=== PATIENT | male | born 1990 | race African-American/Black ===

== ENCOUNTER 2022-01-28 01:30 | Emergency (ER) | payer BC ==
[2022-01-28] MEDS ORDERED: LIDOCAINE VISCOUS 2% SOLN 15 ML UDC ONE (02:52)
[2022-01-28] MEDS ORDERED: MAGNES/ALUMIN/SIMET 30ML UCUP ONE (02:52)
--- NOTE | 2022-01-28 03:16 | EDPHYS ---
Physician Documentation [facility] Name: Jason Hernandez Age: 31 yrs Sex: Male : 1990 Arrival Date: 01/28/2022 Time: 01:34 Bed 19 Private MD: ED Physician Shana Jimenez HPI: 01/28 05:46 This 31 yrs old Black Male presents to ER via Ambulatory with complaints of Neck sd2 Problem. 05:46 31 yo M presents with CC of foreign body sensation to throat. Reports he swallowed a sd2 fingernail he was chewing on about a week ago and then noticed it felt like it cut or scraped his throat when he swallowed it. Reports continued sensations of irritations to this area when swallowing and that he noticed when he laid down tonight, he had associated chest tightness and difficulty breathing along with associated anxiety after reading about his symptoms at [facility]. Denies fevers, CP, SOB. . Historical: - Allergies: 02:04 NKDA; bb - Home Meds: 02:04 None [Active]; bb - PMHx: 02:04 None; bb - PSHx: 02:04 None; bb - Immunization history:: Client reports receiving the 2nd dose of the Covid vaccine, Pfizer. - Social history:: Smoking status: Patient denies any tobacco usage or history of. ROS: 05:46 Constitutional: Negative for fever, chills, and weight loss, Eyes: Negative for injury, sd2 pain, redness, and discharge, ENT: Negative for injury and discharge, Positive for throat pain Neck: Negative for injury, pain, and swelling, Cardiovascular: Negative for chest pain, palpitations, and edema, Respiratory: Negative for shortness of breath, cough, wheezing. Abdomen/GI: Negative for abdominal pain, nausea, vomiting, diarrhea. MS/Extremity: Negative for injury and deformity, Skin: Negative for injury, rash, and discoloration, Neuro: Negative for headache, numbness and tingling. Exam: 05:46 Constitutional: This is a well developed, well nourished patient who is awake, alert, sd2 and in no acute distress. Head/Face: Normocephalic, atraumatic. Eyes: EOMI, normal conjunctiva bilaterally ENT: Nares patent. No nasal discharge, no septal abnormalities noted. Tympanic membranes are normal and external auditory canals are clear. Oropharynx with no redness, swelling, or masses, exudates, or evidence of obstruction, uvula midline. Mucous membranes moist. Chest/axilla: Normal chest wall appearance and motion. Nontender with no deformity. Cardiovascular: Regular rate and rhythm with a normal S1 and S2. No gallops, murmurs, or rubs. 2+ distal pulses. Respiratory: Lungs have equal breath sounds bilaterally, clear to auscultation and percussion. No rales, rhonchi or wheezes noted. No increased work of breathing, no retractions or nasal flaring. Abdomen/GI: Soft, non-tender, with normal bowel sounds. No guarding or rebound. No evidence of tenderness throughout. 05:46 ECG was reviewed by the Attending Physician. NSR, rate 79, no STEMI criteria Vital Signs: 02:00 BP 121 / 90; Pulse 79; Resp 16 S; Temp 98.1(O); Pulse Ox 93% on R/A; Weight 122.47 kg bb (R); Height 6 ft. 3 in. (190.50 cm) (R); 03:23 BP 127 / 89; Pulse 81; Resp 16; Pulse Ox 96% on R/A; ll3 02:00 Body Mass Index 33.75 (122.47 kg, 190.50 cm) bb MDM: 02:07 Patient medically screened. sd2 05:46 Differential diagnosis: FB, doubt ACS, anxiety, doubt esophageal rupture, MW tear among sd2 others. Data reviewed: vital signs, nurses notes, EKG. Counseling: I had a detailed discussion with the patient and/or guardian regarding: the historical points, exam findings, and any diagnostic results supporting the discharge/admit diagnosis, the need for outpatient follow up, to return to the emergency department if symptoms worsen or persist or if there are any questions or concerns that arise at home. 06:08 ED course: Patient with no clinical signs of esophageal rupture or significant sd2 distress. Fingernail should not be sharp enough to cause any significant damage or need endoscopic removal. Pt swallowing well. Tolerating his own oral secretions. No significant abnormalities noted to neck or throat on exam. Pt treated with GI cocktail with improvement. Suspect anxiety may also be playing a role. EKG with no significant changes. Pt advised of continued supportive care for symptoms and need for outpatient follow up. VSS. Pt comfortable with plan for discharge and outpatient follow up and verbalizes understanding of strict return precautions. . Administered Medications: 02:56 Drug: GI Cocktail without - (Maalox Suspension 30 ml, Lidocaine Liquid 2 % 15 ll3 ml) Route: PO; 03:24 Follow up: Response: No adverse reaction ll3 Disposition Summary: 01/28/22 03:15 Discharge Ordered Location: Home sd2 Problem: an ongoing problem sd2 Symptoms: have improved sd2 Condition: Stable sd2 Diagnosis - Foreign body sensation in throat sd2 Followup: sd2 - With: Private Physician - When: 2 - 3 days - Reason: Recheck today's complaints, Continuance of care, Re-evaluation by your physician Followup: sd2 - With: Kaushik Johnson MD - When: 1 week - Reason: Recheck today's complaints, Continuance of care, Re-evaluation by your physician Discharge Instructions: - Discharge Summary Sheet sd2 - Swallowed Foreign Body, Adult sd2 Forms: - Medication Reconciliation Form sd2 - Thank You Letter sd2 - Antibiotic Education sd2 - Prescription Opioid Use sd2 Signatures: Catalina Soares, RN RN bb Armaan Anna RN RN ll3 Shana Jimenez MD MD sd2
--- NOTE | 2022-01-28 03:16 | ER ---
Nurse's Notes [facility] Name: Jason Hernandez Age: 31 yrs Sex: Male : 1990 Arrival Date: 01/28/2022 Time: 01:34 Bed 19 Private MD: Diagnosis: Foreign body sensation in throat Presentation: 01/28 02:00 Chief complaint: Patient states: he thinks he has something stuck in his throat last bb Sunday he was chewing his fingernails and thinks he may have swallowed one he has tried several different methods of getting it out unsuccessfully tonight when he layed down his chest tightened up so he came to the ED. Coronavirus screen: At this time, the client does not indicate any symptoms associated with coronavirus-19. Ebola Screen: No symptoms or risks identified at this time. Initial Sepsis Screen: Does the patient meet any 2 criteria? No. Patient's initial sepsis screen is negative. Does the patient have a suspected source of infection? No. Patient's initial sepsis screen is negative. Risk Assessment: Do you want to hurt yourself or someone else? Patient reports no desire to harm self or others. Onset of symptoms was January 21, 2022. 02:00 Method Of Arrival: Ambulatory bb 02:00 Acuity: LAYA 4 bb Historical: - Allergies: 02:04 NKDA; bb - Home Meds: 02:04 None [Active]; bb - PMHx: 02:04 None; bb - PSHx: 02:04 None; bb - Immunization history:: Client reports receiving the 2nd dose of the Covid vaccine, Pfizer. - Social history:: Smoking status: Patient denies any tobacco usage or history of. Screenin:05 Abuse screen: Denies threats or abuse. Nutritional screening: No deficits noted. bb Tuberculosis screening: No symptoms or risk factors identified. Fall Risk None identified. Assessment: 02:05 General: Appears in no apparent distress. Behavior is calm, cooperative. Pain: bb Complains of pain in throat. Neuro: Level of Consciousness is awake, alert, obeys commands, Oriented to person, place, time, situation. Cardiovascular: Capillary refill < 3 seconds Patient's skin is warm and dry. Respiratory: Airway is patent Respiratory effort is even, unlabored, Respiratory pattern is regular. GI: No signs and/or symptoms were reported involving the gastrointestinal system. Derm: Skin is dry, Skin is normal, Skin temperature is warm. Musculoskeletal: Circulation, motion, and sensation intact. Vital Signs: 02:00 BP 121 / 90; Pulse 79; Resp 16 S; Temp 98.1(O); Pulse Ox 93% on R/A; Weight 122.47 kg bb (R); Height 6 ft. 3 in. (190.50 cm) (R); 03:23 BP 127 / 89; Pulse 81; Resp 16; Pulse Ox 96% on R/A; ll3 02:00 Body Mass Index 33.75 (122.47 kg, 190.50 cm) bb ED Course: 01:34 Patient arrived in ED. ja2 02:04 Triage completed. bb 02:04 Arm band placed on Patient placed in an exam room, on a stretcher, on pulse oximetry. bb 02:05 Patient has correct armband on for positive identification. Bed in low position. Call bb light in reach. 02:07 Shana Jimenez MD is Attending Physician. sd2 02:42 EKG done, by ED staff, reviewed by Shana Jimenez MD. ll3 03:15 Kaushik Johnson MD is Referral Physician. sd2 03:24 No provider procedures requiring assistance completed. Patient did not have IV access ll3 during this emergency room visit. Administered Medications: 02:56 Drug: GI Cocktail without - (Maalox Suspension 30 ml, Lidocaine Liquid 2 % 15 ll3 ml) Route: PO; 03:24 Follow up: Response: No adverse reaction ll3 Medication: 02:05 VIS not applicable for this client. bb Outcome: 03:15 Discharge ordered by . sd2 03:24 Discharged to home ambulatory. ll3 03:24 Condition: stable 03:24 Discharge instructions given to patient, Instructed on discharge instructions, follow up and referral plans. Demonstrated understanding of instructions, follow-up care. 03:24 Patient left the ED. ll3 Signatures: Catalina Soares RN RN Abeba Lopez [place], RN RN ll3 Shana Jimenez MD MD sd2
[2022-01-28 03:30] VITALS: TEMP 98.1
[2022-01-28 03:31] VITALS: BP 127/89; O2SAT 96
--- NOTE | 2022-01-30 15:36 | EKG ---
Test Date: 2022-01-28 Test Time: 02:39:29 Engineering Test Mechanic: LL MEASUREMENT RESULTS: Intervals: Rate: 79 IN: 176 QRSD: 92 QT: 382 QTc: 438 [place]: P: 68 IN: 176 QRS: 51 T: 41 INTERPRETIVE STATEMENTS: Normal sinus rhythm Normal ECG No previous ECG available for comparison Electronically Signed On 01-30-22 15:30:50 CONFERENCE PLANNING MANAGER by Maik Gagnon
== END 2022-01-28 03:24 | disposition home or self-care (01) ==
LOC: ER 01:30
DX: R09.89 Other specified symptoms and signs involving the circulatory and respiratory systems (principal)
CPT/HCPCS: 93005; 99283